=== PATIENT | female | born 1940 | race Caucasian/White ===

== ENCOUNTER 2019-05-01 05:33 | Emergency (ER) | payer MEDICARE ==
[2019-05-01] MEDS ORDERED: Sodium Chloride 0.9% 10 ML Syringe FLUSH PRN (05:36)
--- NOTE | 2019-05-01 05:44 | EDM.PDOC ---
ED HPI GENERAL MEDICAL PROBLEM - General Chief Complaint: Respiratory Problem Stated Complaint: MEDICAL VIA [facility] Time Seen by Provider: 05/01/19 05:35 Source of Information: Reports: EMS History Limitations: Reports: Physical Impairment - History of Present Illness INITIAL COMMENTS - FREE TEXT/NARRATIVE: Patient arrives by ambulance from her custodial in moderate respiratory distress. She has a history of COPD and is still a current smoker. With symptoms overnight, facility had tried several nebulization and inhaler treatments prior to arrival of paramedics. They administered DuoNeb treatment and placed her on CPAP en route which helped somewhat. She was hospitalized at [facility] in [place] 10 days ago with similar symptoms. At this time, she is not a useful historian due to fatigue. Onset: Today - Related Data Allergies Allergy/AdvReac Type Severity Reaction Status Date / Time adhesive tape Allergy Cannot Verified 05/01/19 05:50 Remember amoxicillin Allergy Cannot Verified 05/01/19 05:50 Remember clavulanic acid Allergy Cannot Verified 05/01/19 05:50 [From Augmentin] Remember codeine Allergy Cannot Verified 05/01/19 05:50 Remember fenoprofen [From Nalfon] Allergy Cannot Verified 05/01/19 05:50 Remember lisinopril Allergy Cannot Verified 05/01/19 05:50 Remember morphine Allergy Cannot Verified 05/01/19 05:50 Remember tree nut Allergy Cannot Verified 05/01/19 05:50 Remember Home Meds: Home Meds Albuterol Sulfate [Albuterol Sulfate Hfa] 8.5 gm IH Q4HR PRN 05/01/19 [History] Aspirin [Adult Low Dose Aspirin EC] 81 mg PO DAILY 05/01/19 [History] Benzonatate 100 mg PO Q8HR PRN 05/01/19 [History] Budesonide/Formoterol [Symbicort 160-4.5 MCG] 1 puff INH BID 05/01/19 [History] Cholecalciferol (Vitamin D3) [Vitamin D] 400 unit PO DAILY 05/01/19 [History] Clopidogrel Bisulfate [Plavix] 75 mg PO DAILY 05/01/19 [History] EPINEPHrine [Epinephrine] 0.3 mg SUBCNJ ASDIRECTED PRN 05/01/19 [History] FLUoxetine HCl [Prozac] 20 mg PO DAILY 05/01/19 [History] Folic Acid 1 mg PO DAILY 05/01/19 [History] Furosemide [Lasix] 40 mg PO BID 05/01/19 [History] Hydrocortisone [Hydrocortisone 2.5% Crm] 30 gm .XX Q8HR 05/01/19 [History] Insulin Glarg,Human.Rec.Analog [Lantus Solostar] 55 unit SUBCUT BEDTIME [History] Losartan [Cozaar] 25 mg PO DAILY 05/01/19 [History] Magnesium Oxide 400 mg PO DAILY 05/01/19 [History] Meclizine [Antivert] 25 mg PO Q6H PRN 05/01/19 [History] Metoprolol Tartrate 25 mg PO BID 05/01/19 [History] Nabumetone [Relafen] 500 mg PO BID 05/01/19 [History] Nicotine [Nicotine Patch] 21 mg TD DAILY 05/01/19 [History] Olopatadine [Patanol 0.1% Ophth Soln] 1 drop EYEBOTH BID 05/01/19 [History] Oxybutynin Chloride [Oxybutynin Chloride ER] 10 mg PO TID 05/01/19 [History] Polyethylene Glycol/Polyvinyl [Hypotears Eye Drops] 15 ml OP BID 05/01/19 [ History] Raloxifene HCl 60 mg PO DAILY 05/01/19 [History] Simvastatin [Zocor] 40 mg PO BEDTIME 05/01/19 [History] Triamcinolone Acetonide [Triamcinolone Acetonide 0.5%] 15 gm TOP Q8HR 05/01/19 [ History] metFORMIN HCl [Glucophage] 1,000 mg PO BID 05/01/19 [History] raNITIdine HCl [Zantac] 150 mg PO DAILY 05/01/19 [History] ED ROS GENERAL - Review of Systems Review Of Systems: Unable To Obtain Reason Not Obtained: Poor clinical status ED EXAM, GENERAL - Physical Exam Exam: See Below Exam Limited By: Respiratory Distress General Appearance: Lethargic Respiratory/Chest: Respiratory Distress, Crackles Cardiovascular: Regular Rate, Rhythm, Tachycardia GI/Abdominal: Soft, Non-Tender Neurological: Slow to Respond EKG INTERPRETATION EKG Date: 05/01/19 Rhythm: NSR Rate (Beats/Min): 114 Goff: Normal P-Wave: Present QRS: Normal ST-T: Normal QT: Normal Comparison: NA - No Prior EKG Course - Vital Signs Last Recorded V/S: Last Vital Signs Temp 35.0 C L 05/01/19 05:34 Pulse 114 H 05/01/19 06:33 Resp 35 H 05/01/19 06:33 BP 100/47 L 05/01/19 06:33 Pulse Ox 99 05/01/19 06:33 - Orders/Labs/Meds Orders: Active Orders 24 hr Category Date Time Status BIPAP Adult [RT BiPAP/CPAP] [RC] ASDIRECTED Care 05/01/19 05:48 Ordered EKG Documentation Completion [RC] ASDIRECTED Care 05/01/19 05:36 Ordered RT Aerosol Therapy [RC] ASDIRECTED Care 05/01/19 06:05 Ordered Sodium Chloride 0.9% [Saline Flush] Med 05/01/19 05:36 Ordered 10 ml FLUSH ASDIRECTED PRN Saline Lock Insert [OM.PC] Routine Oth 05/01/19 05:36 Ordered EKG 12 Lead [EK] Routine Ther 05/01/19 05:35 Ordered Medication Orders Sodium Chloride (Saline Flush) 10 ml FLUSH ASDIRECTED PRN PRN Reason: Keep Vein Open Labs: Laboratory Tests 05/01/19 05/01/19 05/01/19 Range/Units 05:35 05:35 05:55 WBC 14.1 H (4.5-11.0) K/uL RBC 4.19 (3.30-5.50) M/uL Hgb 11.5 L (12.0-15.0) g/dL Hct 37.2 (36.0-48.0) % MCV 89 (80-98) fL MCH 27 (27-31) pg MCHC 31 L (32-36) % Plt Count 377 (150-400) K/uL Add Manual Diff Yes Neutrophils % (Manual) 58 (36-66) % Band Neutrophils % 16 H (5-11) % Lymphocytes % (Manual) 24 (24-44) % Monocytes % (Manual) 2 (2-6) % Puncture Site R brachial ABG pH 7.336 L (7.350-7.450) ABG pCO2 29.0 L (35.0-42.0) mmHg ABG pO2 58.6 L (75.0-100.0) mmHg ABG HCO3 15.1 L (22.0-26.0) mmol/L ABG Total CO2 13.9 L (21.0-25.0) mmol/L ABG O2 Saturation 87.5 L (95.0-98.0) % ABG O2 Content 14.0 L (15.0-23.0) %vol ABG Base Excess -9.2 mm/L ABG Hemoglobin 11.8 L (12.0-16.0) g/dL ABG Oxyhemoglobin 84.3 % ABG Carboxyhemoglobin 2.8 H (0.0-1.6) % ABG Methemoglobin 0.8 % O2 Delivery Device Cpap Oxygen Flow Rate 15 L Sodium 134 L (140-148) mmol/L Potassium 3.7 (3.6-5.2) mmol/L Chloride 94 L (100-108) mmol/L Carbon Dioxide 17 L (21-32) mmol/L Anion Gap 26.7 H (5.0-14.0) mmol/L BUN 38 H (7-18) mg/dL Creatinine 2.9 H (0.6-1.0) mg/dL Est Cr Clr Drug Dosing 14.85 mL/min Estimated GFR (MDRD) 16 L (>60) Glucose 110 H (74-106) mg/dL Calcium 8.5 (8.5-10.1) mg/dL Total Bilirubin 1.0 (0.2-1.0) mg/dL AST 17 (15-37) U/L ALT 17 (12-78) U/L Alkaline Phosphatase 61 (46-116) U/L Troponin I < 0.017 (0.000-0.056) ng/mL Total Protein 6.8 (6.4-8.2) g/dL Albumin 2.4 L (3.4-5.0) g/dL Globulin 4.4 H (2.3-3.5) g/dL Albumin/Globulin Ratio 0.6 L (1.2-2.2) Meds: Medications Generic Name Dose Route Start Last Admin Trade Name Freq PRN Reason Stop Dose Admin Sodium Chloride 10 ml 05/01/19 05:36 Saline Flush FLUSH ASDIRECTED PRN Keep Vein Open Discontinued Medications Generic Name Dose Route Start Last Admin Trade Name Freq PRN Reason Stop Dose Admin Albuterol/Ipratropium 3 ml 05/01/19 06:04 02/01/20 06:17 Duoneb 3.0-0.5 Mg/3 Ml NEB 05/01/19 06:05 3 ml ONETIME ONE Administration Methylprednisolone Sodium Succinate 125 mg 05/01/19 05:54 05/01/19 06:16 Solu-Medrol IVPUSH 05/01/19 05:55 125 mg ONETIME ONE Administration - Re-Assessments/Exams Free Text/Narrative Re-Assessment/Exam: 05/01/19 05:46 The patient is breathing with a respiratory rate in the mid 30s. There is a right lower lung infiltrate on portable chest x-ray. She'll be placed on BiPAP. 05/01/19 06:11 I reviewed her case with Dr. Cadena, the hospitalist on duty. Given the level of her hypoxia, PO2 of 58 on 15 L of oxygen by mask, possibility of a pulmonary embolus is very real. If her kidney function is stable, we will obtain a CT angiogram of the chest. 05/01/19 06:30 Review of labs shows a creatinine of 2.9 with a GFR of 15. We will not able to do the CT angiogram of her chest. 05/01/19 07:22 On review of her situation and with the possibility of pulmonary embolus as cause of her symptoms, she will need to be transferred to another facility. She prefers [facility] in [place]. 05/01/19 07:57 Her case was reviewed with staff at [facility] in [place]. She will be accepted by the hospitalist service. Departure - Departure Time of Disposition: 07:25 Disposition: DC/Tfer to [facility] 02 Clinical Impression: COPD exacerbation, Acute kidney injury superimposed on chronic kidney disease Respiratory failure with hypoxia Qualifiers: Chronicity: acute on chronic Qualified Code(s): J96.21 - Acute and chronic respiratory failure with hypoxia - Discharge Information Forms: ED Department Discharge Sepsis Event Note - Focused Exam Vital Signs: Vital Signs Temp Pulse Resp BP Pulse Ox 05/01/19 06:33 114 H 35 H 100/47 L 99 05/01/19 05:56 114 H 37 H 155/95 H 83 L 05/01/19 05:34 35.0 C L 120 H 37 H 129/50 L 83 L Date Exam was Performed: 05/01/19 Time Exam was Performed: 07:16 - My Orders Last 24 Hours: My Active Orders 05/01/19 05:35 EKG 12 Lead [EK] Routine 05/01/19 05:36 EKG Documentation Completion [RC] ASDIRECTED Sodium Chloride 0.9% [Saline Flush] 10 ml FLUSH ASDIRECTED PRN Saline Lock Insert [OM.PC] Routine 05/01/19 05:48 BIPAP Adult [RT BiPAP/CPAP] [RC] ASDIRECTED 05/01/19 06:05 RT Aerosol Therapy [RC] ASDIRECTED - Assessment/Plan Last 24 Hours: My Active Orders 05/01/19 05:35 EKG 12 Lead [EK] Routine 05/01/19 05:36 EKG Documentation Completion [RC] ASDIRECTED Sodium Chloride 0.9% [Saline Flush] 10 ml FLUSH ASDIRECTED PRN Saline Lock Insert [OM.PC] Routine 05/01/19 05:48 BIPAP Adult [RT BiPAP/CPAP] [RC] ASDIRECTED 05/01/19 06:05 RT Aerosol Therapy [RC] ASDIRECTED
[2019-05-01] MEDS ORDERED: methylPREDNISolone Sodium Succinate 125 MG/2 ML SDV IVPUSH ONE (05:54)
[2019-05-01] MEDS ORDERED: Albuterol/Ipratropium 3.0-0.5 MG/3 ML Neb Soln NEB ONE ×2 (06:04→07:19)
--- NOTE | 2019-05-01 06:08 | CRLCR ---
Indication: Severe dyspnea Technique: Chest 1 view. Comparison: None Findings/Impression: : Prominent cardiac size. Patchy opacity in the right mid to lower lung field may represent atelectasis or infection. Small right pleural effusion. Normal pulmonary vasculature. No pneumothorax. Status post bilateral shoulder arthroplasties. Dictated by Rachelle Mari MD @ May 01 2019 6:06AM Signed by Dr. Rachelle Mari @ May 01 2019 6:07AM
== END 2019-05-01 09:06 ==
LOC: JP.ED 05:33
DX: J96.21 Acute and chronic respiratory failure with hypoxia (principal); J44.1 Chronic obstructive pulmonary disease with (acute) exacerbation; N17.9 Acute kidney failure, unspecified; N18.9 Chronic kidney disease, unspecified; Z88.1 Allergy status to other antibiotic agents; Z88.5 Allergy status to narcotic agent; Z88.8 Allergy status to other drugs, medicaments and biological substances; Z88.6 Allergy status to analgesic agent; Z91.048 Other nonmedicinal substance allergy status; Z79.82 Long term (current) use of aspirin; Z79.899 Other long term (current) drug therapy; Z79.02 Long term (current) use of antithrombotics/antiplatelets; Z79.4 Long term (current) use of insulin
CPT/HCPCS: 36600; 71045; 80053; 82803; 84484; 85025; 93005; 94640; 94660; 96374; 99285; J2930; 93010; J7620-GY